=== PATIENT | male | born 1965 | race Caucasian/White ===

== ENCOUNTER → 2024-12-29 | Outpatient (CLI) | payer OTHER ==
--- NOTE | 2024-12-29 08:08 | MR ---
EXAMINATION TYPE: MR Prostate wo/w con DATE OF EXAM: 12/29/2024 6:53 AM COMPARISON: None. CLINICAL INDICATION: Male, 59 years old with history of C61 prostate ca; prostate cancer, history of biopsy. TECHNIQUE: Multi-planar, multi-sequence imaging of the pelvis is performed prior to and following the uncomplicated administration of bolus intravenous gadolinium. IV Contrast: 10 mL Gadobutrol Interpretive Criteria: PI-RADS v2.1 SERUM PSA: 4.590 09-29-24, SURGICAL PATHOLOGY: Biopsy 12/17/2021 no results available. FINDINGS: Prostatic dimensions: 4.6 x 5.3 x 4.3 cm. Ellipsoid Volume:54.89 (PSA density=0.08 ng/mL/mL) CENTRAL GLAND (Central and Transition Zones/CZ+TZ): Multiple bilateral, heterogenous appearing hypertrophic stromal nodules, without suspicious lesion. M edian lobe hypertrophy with protrusion into the base of the bladder. (PI-RADS 2) PERIPHERAL ZONE (PZ): High DWI and low ADC low T2 signal 13a x 12 mm left peripheral gland apex lesion. (PI-RADS 4) SEMINAL VESICLES (SV): Symmetric and unremarkable. PERIPROSTATIC TISSUES: Unremarkable. LYMPH NODES: No enlarged pelvic lymph node. REMAINING PELVIS: Bladder wall is within normal limits given distention. No abnormal free or organized intrapelvic fluid collection. No pathologic bowel dilation or mural thickening. No hernia visualized OSSEOUS STRUCTURES: No suspicious osseous abnormality. IMPRESSION: 1. PI-RADS 4 Lesion in the peripheral zone, apex measuring 13 x 12 mm. 2. Moderate BPH, estimated gland volume 54.89 (PSA density=0.08 ng/mL/mL) 3. No suspicious osseous lesion. No lymphadenopathy. No evidence of prostate adenocarcinoma involving the periprostatic tissues. [facility], , 12/29/2024 8:06 AM
== END | disposition home or self-care (01) ==
LOC: RADMRIMAIN 06:01
PROVIDERS: ATTEND Urology
DX: C61 Malignant neoplasm of prostate (principal); N40.0 Benign prostatic hyperplasia without lower urinary tract symptoms
CPT/HCPCS: 72197; A9585

== ENCOUNTER → 2025-02-06 | Outpatient (CLI) | payer OTHER ==
[2025-02-06 10:13] LABS: Basophils # (A) 0.04 X 10*3/uL (0.00-0.10); Basophils % (A) 0.6 %; Eosinophils # (A) 0.46 X 10*3/uL (0.04-0.35); Eosinophils % (A) 7.1 %; HGB 15.6 g/dL (13.0-17.0); Lymphocytes % (A) 32.5 %; MCH 29.3 pg (27.0-32.0); MCHC 32.5 g/dL (32.0-37.0); MCV 90.1 FL (80.0-97.0); Mean Platelet Volume 9.4 FL (9.5-12.2); Monocytes # (A) 0.64 X 10*3/uL (0.20-1.00); Monocytes % (A) 9.9 %; NRBC Per 100 WBC 0 X 10*3/uL (0.00-0.01); Neutrophils % (A) 49.6 %; Platelet Count 284 X 10*3/uL (140-440); RBC 5.33 X 10*6/uL (4.40-5.60); RDW 13.5 % (11.5-14.5); WBC 6.46 X 10*3/uL (4.50-10.00)
[2025-02-06 10:24] LABS: Blood Urea Nitrogen 16.8 mg/dL (9.0-27.0); Calcium 9.3 mg/dL (8.7-10.3); Carbon Dioxide 24.6 mmol/L (21.6-31.8); Chloride 103 mmol/L (96-109); Glucose 105 mg/dL (70-110); Potassium 4.4 mmol/L (3.5-5.5); Sodium 138 mmol/L (135-145)
== END | disposition home or self-care (01) ==
LOC: LABPAT 07:30
PROVIDERS: ATTEND Urology
DX: Z01.812 Encounter for preprocedural laboratory examination (principal); R97.20 Elevated prostate specific antigen [PSA]
CPT/HCPCS: 80048; 85025

== ENCOUNTER 2025-02-08 08:20 | Day surgery (SDC) | payer OTHER ==
--- NOTE | 2025-02-06 21:23 | P.GSHP ---
History of Present Illness H&P Date: 02/06/25 Chief Complaint: Elevated PSA level The patient is a 60-year-old white male diagnosed with Marnie 6 adenocarcinoma of the prostate in December 2021. He elected to proceed with active surveillance rather than treatment. His PSA level holly from 4.42 in January 2024 to 4.59 in September 2024. Prostate MRI now shows a prostate volume of 54.9 cc with a PI- RADS 4 lesion within the left peripheral zone at the apex. He now comes for MRI fusion biopsies. - Genitourinary (Male) Genitourinary: Reports urinary frequency Past Medical History Past Medical History: Cancer, Prostate Disorder Additional Past Medical History / Comment(s): seasonal allergies/hay fever; hx prostate ca 2021 - no tx History of Any Multi-Drug Resistant Organisms: None Reported Past Surgical History: Hernia Repair Additional Past Surgical History / Comment(s): umbillical hernia repair, colonoscopy, prostate bx 2021 Past Anesthesia/Blood Transfusion Reactions: No Reported Reaction Smoking Status: Never smoker Medications and Allergies Home Medications Medication Instructions Recorded Confirmed Type Fexofenadine HCl [Sada Allergy] 180 mg PO DAILY PRN 02/05/25 02/05/25 History Montelukast [Singulair] 10 mg PO HS 02/05/25 02/05/25 History Allergies Allergy/AdvReac Type Severity Reaction Status Date / Time No Known Allergies Allergy Verified 02/05/25 10:47 Surgical - Exam - General well developed, well nourished, no distress - Respiratory normal respiratory effort - Abdomen Abdomen: soft, non tender, no guarding, no rigid, no rebound - Genitourinary normal penis with no external lesions, testicles non-tender - Rectum Rectum: normal sphincter tone, no masses (Prostate mildly enlarged with a left apical nodule) - Psychiatric oriented to time, oriented to person, oriented to place, speech is normal, memory intact Assessment and Plan (1) Malignant neoplasm of prostate Status: Acute Code(s): C61 - MALIGNANT NEOPLASM OF PROSTATE SNOMED Code(s): 889963332 Plan: The patient will undergo MRI-Ultrasound fusion transrectal biopsies of the prostate. The procedure has been reviewed in detail with the patient. He has been made aware of potential risks, which include anesthesia, bleeding, and infection. He is also aware that a negative biopsy does not completely rule out prostate cancer.
[~2025-02-08 08:20] MED LIST: DEXAMETHASONE SOD PHOSPHATE 4 MG/ML 1 ML VIAL IV ONE; HYDROmorphone 0.5 MG/0.5 ML SYRINGE IVP PRN; LIDOCAINE 1% (10MG/ML) FOR IV START INTRADERMA PRN; MIDAZOLAM 2 MG/2 ML VIAL IV PRN; ONDANSETRON 4 MG/2 ML VIAL IVP ONE; fentaNYL (PF) 50 MCG/ML 2 ML AMP IVP PRN
[2025-02-08] MEDS: IV FLUID CONTINUATION 1,000 ML IV ONE (08:54)
[2025-02-08] MEDS: LACTATED RINGERS 1,000 ML IV SCH (09:33)
[2025-02-08 09:35] VITALS: TEMP 98
[2025-02-08] MEDS: GENTAMICIN 40 MG/ML 2 ML VIAL IM PRN (10:30)
[2025-02-08] MEDS ORDERED: fentaNYL (PF) 50 MCG/ML 2 ML AMP ONE (11:00)
[2025-02-08] MEDS ORDERED: PROPOFOL 10 MG/ML 20 ML VIAL IV ONE (11:00)
[2025-02-08] MEDS ORDERED: MIDAZOLAM 2 MG/2 ML VIAL ONE (11:00)
--- NOTE | 2025-02-08 11:24 | P.OP ---
Date of Procedure: 02/08/25 Preoperative Diagnosis: Adenocarcinoma of the prostate Postoperative Diagnosis: Same Procedure(s) Performed: MRI fusion biopsies of the prostate Anesthesia: MAC Surgeon: Jareth Suh Estimated Blood Loss (ml): 5 IV fluids (ml): 300 Pathology: other (Prostate biopsies) Condition: stable Disposition: PACU Indications for Procedure: The patient is a 60-year-old white male diagnosed with Marnie 6 adenocarcinoma of the prostate in December 2021. He elected to proceed with active surveillance rather than treatment. His PSA level holly from 4.42 in January 2024 to 4.59 in September 2024. Prostate MRI now shows a prostate volume of 54.9 cc with a PI- RADS 4 lesion within the left peripheral zone at the apex. He now comes for MRI fusion biopsies. Operative Findings: Left apical hypoechoic lesion corresponds with MRI abnormality. Description of Procedure: The patient was taken to the operating room and placed in the left lateral decubitus position. ISABEL revealed the prostate to be mildly enlarged with subtle left apical firmness. The [employer] transrectal ultrasound probe was placed intrarectally. It was then placed within the stand of the [employer] MRI/TRUS Fusion for Prostate Biopsy system. The prostate was imaged in both the axial and sagittal planes, revealing a prostate volume of 43 mL. Using the Biopty gun, 3 biopsies were obtained from the target lesion within the left peripheral zone at the apex. The remaining 12 biopsies of the peripheral zone were obtained utilizing a standard template. Once the procedure was completed, the ultrasound probe was removed. The patient tolerated the procedure well was taken to the recovery room stable condition.
[2025-02-08 11:45] VITALS: BP 103/60; PULSE 69; RESP 14
== END 2025-02-08 12:25 | disposition home or self-care (01) ==
LOC: OR 08:20
PROVIDERS: ATTEND Urology
DX: C61 Malignant neoplasm of prostate (principal); N42.31 Prostatic intraepithelial neoplasia; K21.9 Gastro-esophageal reflux disease without esophagitis; J30.1 Allergic rhinitis due to pollen; Z79.899 Other long term (current) drug therapy; Z98.890 Other specified postprocedural states
CPT/HCPCS: 88305; 55700; J2250; J1580; J3010; J2704